=== PATIENT | female | born 1980 | race Two or more races ===

== ENCOUNTER 2022-07-29 22:13 | Emergency (ER) | payer BC, OTHER ==
[~2022-07-29] VITALS: Ht 157.5 cm; Wt 150.0 kg
[2022-07-29] MEDS ORDERED: KETOROLAC TROMETH 30 MG/ML 1ML VIAL IV ONE (23:45)
[2022-07-30 00:40] VITALS: BP 141/84
== END 2022-07-30 00:43 | disposition home or self-care (01) ==
LOC: ER 22:13
DX: M79.10 Myalgia, unspecified site (principal); R07.89 Other chest pain; M54.9 Dorsalgia, unspecified; M54.2 Cervicalgia; V43.62XA Car passenger injured in collision with other type car in traffic accident, initial encounter; Y93.89 Activity, other specified; Y92.89 Other specified places as the place of occurrence of the external cause; Y99.8 Other external cause status
CPT/HCPCS: 71045; 71120; 72040; 73590; 96372; 99284; J1885

== ENCOUNTER 2023-11-10 21:18 | Emergency (ER) | payer BC, OTHER ==
[~2023-11-10] VITALS: Ht 162.6 cm; Wt 130.7 kg
[2023-11-10 21:28] VITALS: BP 148/79; PULSE 81; RESP 20; TEMP 98.4; O2SAT 100
[2023-11-11] MEDS ORDERED: IBUP1TAB5 PO (01:05)
[2023-11-11] MEDS ORDERED: CYCL-839 PO (01:05)
[2023-11-11] MEDS ORDERED: HYDROcodone-ACET 5/325MG TAB PO ONE (01:15)
== END 2023-11-11 01:38 | disposition home or self-care (01) ==
LOC: ER 21:18
DX: S13.9XXA Sprain of joints and ligaments of unspecified parts of neck, initial encounter (principal); S23.3XXA Sprain of ligaments of thoracic spine, initial encounter; S33.5XXA Sprain of ligaments of lumbar spine, initial encounter; S00.03XA Contusion of scalp, initial encounter; W18.09XA Striking against other object with subsequent fall, initial encounter; Y93.89 Activity, other specified; Y92.89 Other specified places as the place of occurrence of the external cause; Y99.8 Other external cause status
CPT/HCPCS: 70450; 72040; 72070; 72100